=== PATIENT | male | born 1945 | race Two or more races ===

== ENCOUNTER 2023-04-24 06:05 | Inpatient (IN) | payer MEDICARE, BC ==
[2023-04-19 11:51] LABS: Basophils # (auto) 0.1 10 ^3/uL (0-0.2); Basophils % (auto) 1.3 % (0.0-2.0); Eosinophils # (auto) 0.2 10 ^3/uL (0-0.8); Hematocrit 45.1 % (41.0-53.0); Hemoglobin 14.9 g/dL (13.5-17.5); Lymphocytes # (auto) 1.7 10 ^3/uL (0.4-5.4); Lymphocytes % (auto) 22.4 % (10.0-50.0); Mean Corpuscular Volume 90.9 fL (80.0-100.0); Monocytes # (auto) 0.5 10 ^3/uL (0-1.3); Monocytes % (auto) 6.8 % (0.0-12.0); Neutrophils # (auto) 5.2 10 ^3/uL (1.6-8.6); Neutrophils % (auto) 67.5 % (37.0-80.0); Nucleated Red Blood Cells % 0.1 %; Red Blood Cells 4.97 10^6/uL (4.5-5.90); Red Cell Distribution Width 13.7 % (11.8-14.3); White Blood Cell 7.7 10^3/uL (4.4-10.8)
[2023-04-19 11:56] LABS: Urine Bacteria NONE SEEN /hpf (None Seen); Urine Blood Negative /uL (Negative); Urine Clarity Clear (Clear); Urine Color Yellow (Yellow); Urine Protein, UAD Negative (Negative); Urine Specific Gravity 1.021 (1.001-1.035); Urine Urobilinogen Normal (Negative); Urine WBC <1 /hpf (0 - 3)
[2023-04-19 12:16] LABS: Alanine Aminotransferase 14 U/L (7-40); Alkaline Phosphatase 85 U/L (46-116); Anion Gap 5 (5-15); Aspartate Aminotransferase 16 U/L (13-40); Blood Urea Nitrogen 15 mg/dL (9-23); Calcium 9.5 mg/dL (8.5-10.1); Carbon Dioxide 28 mmol/L (20-30); Chloride 108 mmol/L (98-107); Glucose 91 mg/dL (74-106); Potassium 4.7 mmol/L (3.5-5.1); Sodium 141 mmol/L (136-145)
[2023-04-19 12:17] LABS: Albumin 4.4 g/dL (3.2-4.8); Bilirubin, Total 0.6 mg/dL (0.2-1.0); Total Protein 7.4 g/dL (5.7-8.2)
[2023-04-19 12:32] LABS: INR 1.06 (0.9-1.15); Partial Thromboplastin Time 31.1 SEC (24.5-34.5); Prothrombin Time 11.1 sec (9.3-11.8)
[~2023-04-24] VITALS: Ht 177.8 cm; Wt 73.3 kg
[~2023-04-24 06:05] MED LIST: APIX5TAB PO; DRON400T PO; HYDR-4798 PO
[2023-04-24] MEDS ORDERED: DexAMETHasone SOD PHOS 10MG/1ML VIAL INJ ONE (07:14)
[2023-04-24] MEDS ORDERED: EPINEPHrine HCL 1 MG/1 ML AMP ONE (07:14)
[2023-04-24] MEDS ORDERED: KETOROLAC TROMETH 30 MG/ML 1ML VIAL ONE (07:14)
[2023-04-24] MEDS ORDERED: LIDOCAINE 1% INJ PF 5ML AMP ONE (07:14)
[2023-04-24] MEDS ORDERED: ONDANSETRON HCL 4 MG/2 ML VIAL ONE (07:14)
[2023-04-24] MEDS ORDERED: KETAMINE 50mg/ML 1ml syringe ONE (07:15)
[2023-04-24] MEDS ORDERED: PROPOFOL 10 MG/ML 20 ML IV ONE ×2 (07:15→09:38)
[2023-04-24] MEDS ORDERED: GLYCOPYRROLATE 0.2 MG/ML 1ML VIAL ONE (07:15)
[2023-04-24] MEDS: CELECOXIB 100 MG CAP PO ONE (08:20)
[2023-04-24] MEDS: ACETAMINOPHEN IV 1000 MG/100ML (10MG/ML) IV ONE (08:20)
[2023-04-24] MEDS: GABAPENTIN 400 MG CAP PO ONE (08:20)
[2023-04-24] MEDS ORDERED: ePHEDrine SULFATE 50 MG/ML AMP ONE ×2 (08:39→10:08)
[2023-04-24] MEDS: VANCOMYCIN HCL 1000 MG VL ONE (09:08)
[2023-04-24] MEDS ORDERED: MORPHINE SULFATE INJ 2 MG/ml SYRG IV PRN (11:00)
[2023-04-24] MEDS ORDERED: NITROGLYCERIN 0.4 MG SL TAB SL PRN (11:00)
[2023-04-24] MEDS ORDERED: HYDROcodone-ACET 5/325MG TAB PO PRN (11:15)
[2023-04-24] MEDS ORDERED: KETOROLAC TROMETH 30 MG/ML 1ML VIAL IV SCH (12:00)
[2023-04-24] MEDS: ceFAZolin 1GM/50ML 50 ML IV SCH (13:45)
[2023-04-24] MEDS ORDERED: ALPR1TAB2 PO (15:39)
[2023-04-24] MEDS: ceFAZolin 2 GM/D5W100ml 100 ML IV ONE (15:42)
[2023-04-24] MEDS: LACTATED RINGER'S 1,000 ML IV SCH (15:44)
[2023-04-24] MEDS: TRANEXAMIC ACID 20 ML ONE (15:44)
[2023-04-24] MEDS: DexAMETHasone SOD PHOS 4 MG/1ML SDV INJ ONE (15:45)
[2023-04-24] MEDS: BUPIVACAINE HCL 50 ML ONE (15:45)
[2023-04-24] MEDS: OXYCODONE W/ ACETAMINOPHEN 5/325MG TABLET PO PRN (16:21)
[2023-04-24] MEDS: HYDROcodone-ACET 10/325MG TAB PO PRN (17:57)
[2023-04-24 20:00] VITALS: BP 101/60; PULSE 84; RESP 19; TEMP 98; O2SAT 93
[2023-04-24] MEDS: ENOXAPARIN SOD 30 MG/0.3 ML SYRINGE SC SCH (21:43)
[2023-04-24 22:00] VITALS: BP 101/60; PULSE 84; RESP 79; TEMP 98; O2SAT 93
[2023-04-25] MEDS: HYDROmorphone HCL 2 MG/ML VL/or syr IV PRN (01:30)
[2023-04-25 04:58] VITALS: BP 121/60; PULSE 87; RESP 17; TEMP 98.1; O2SAT 94
[2023-04-25 07:36] LABS: Anion Gap 5 (5-15); Carbon Dioxide 27 mmol/L (20-30); Chloride 108 mmol/L (98-107); Potassium 4.7 mmol/L (3.5-5.1); Sodium 140 mmol/L (136-145)
[2023-04-25 07:37] LABS: Calcium 8.6 mg/dL (8.5-10.1)
[2023-04-25 07:41] LABS: Glucose 129 mg/dL (74-106)
[2023-04-25 07:42] LABS: BUN/Creatinine Ratio 18.4 (10.0-20.0); Basophils # (auto) 0 10 ^3/uL (0-0.2); Blood Urea Nitrogen 18 mg/dL (9-23); Eosinophils # (auto) 0 10 ^3/uL (0-0.8); Hematocrit 33.1 % (41.0-53.0); Hemoglobin 11.2 g/dL (13.5-17.5); Lymphocytes # (auto) 0.5 10 ^3/uL (0.4-5.4); Lymphocytes % (auto) 3.5 % (10.0-50.0); Mean Corpuscular Hemoglobin 31.6 pg (28.0-32.0); Monocytes # (auto) 0.9 10 ^3/uL (0-1.3); Monocytes % (auto) 5.9 % (0.0-12.0); Neutrophils # (auto) 14.2 10 ^3/uL (1.6-8.6); Neutrophils % (auto) 90.6 % (37.0-80.0); Red Blood Cells 3.56 10^6/uL (4.5-5.90); Red Cell Distribution Width 13.5 % (11.8-14.3); White Blood Cell 15.7 10^3/uL (4.4-10.8)
[2023-04-25 08:00] VITALS: BP 114/57; PULSE 77; RESP 15; TEMP 98.2
[2023-04-25 09:00] VITALS: BP 114/57; PULSE 77; RESP 15; TEMP 98.2; O2SAT 92
[2023-04-25] MEDS ORDERED: ALPRAZolam 0.5 MG TAB PO PRN (12:45)
[2023-04-25 13:00] VITALS: BP 124/61; PULSE 82; RESP 19; TEMP 98.3; O2SAT 94
[2023-04-25] MEDS ORDERED: HYDR-4798 PO (13:07)
[2023-04-25 13:55] VITALS: BP 124/61; PULSE 82; RESP 19; TEMP 98.3; O2SAT 94
[2023-04-25] MEDS ORDERED: APIXABAN 5 MG TAB PO SCH (22:00)
== END 2023-04-25 15:30 | disposition home health service (06) | DRG 470 ==
LOC: SUR 06:05 → OVERFLOW 10:55 → WEST WING 13:14
PROVIDERS: ADMIT Physician Assistant; ATTEND Family Medicine
PROC: 0SRC069 Replacement of Right Knee Joint with Oxidized Zirconium on Polyethylene Synthetic Substitute, Cemented, Open Approach (ICD-10-PCS; principal; 2023-04-24 08:25)
DX: M17.11 Unilateral primary osteoarthritis, right knee (principal); R71.0 Precipitous drop in hematocrit; I48.91 Unspecified atrial fibrillation; F41.9 Anxiety disorder, unspecified; Z82.49 Family history of ischemic heart disease and other diseases of the circulatory system; Z83.3 Family history of diabetes mellitus; Z79.01 Long term (current) use of anticoagulants
CPT/HCPCS: 0055T; 27488; 27599; 36415; 73560; 80048; 80053; 81001; 82962; 85025; 85610; 85730; 86850; 86900; 86901; 97163; G0378; J0131; J0171; J1100; J1885; J2405; J2704; J3490